=== PATIENT | female | born 1940 | race Caucasian/White ===

== ENCOUNTER 2022-08-29 14:22 | Inpatient (IN) | payer OTHER, MEDICAID ==
[~2022-08-29] VITALS: Ht 165.1 cm; Wt 63.5 kg
[2022-08-29] MEDS ORDERED: IV NORMAL SALINE 1000 ML BAG IV ONE (14:30)
[2022-08-29] MEDS ORDERED: AMLO5TAB4 PO (14:47)
[2022-08-29] MEDS ORDERED: CARV10CP7 PO (14:47)
[2022-08-29] MEDS ORDERED: CARB1TAB21 PO (14:47)
[2022-08-29] MEDS ORDERED: FAMO20TA8 PO (14:48)
[2022-08-29] MEDS ORDERED: FENO67CA5 PO (14:48)
[2022-08-29] MEDS ORDERED: CLOP75TA33 PO (14:48)
[2022-08-29] MEDS ORDERED: LEVO75CA5 PO (14:49)
[2022-08-29] MEDS ORDERED: GABA-534 PO (14:49)
[2022-08-29] MEDS ORDERED: LOSA50TA39 PO (14:49)
[2022-08-29] MEDS ORDERED: METF-440 PO (14:52)
[2022-08-29] MEDS ORDERED: NITR0.3T SL (14:52)
[2022-08-29] MEDS ORDERED: OMEG1CAP47 PO (14:52)
[2022-08-29] MEDS ORDERED: PARO20TA7 PO (14:54)
[2022-08-29 14:58] LABS: HEMATOCRIT 36.6 % (31.2-41.9); MEAN CORPUSCULAR HEMOGLOBIN 31.1 uug (24.7-32.8); MEAN CORPUSCULAR VOLUME 92.2 fL (75.5-95.3); PLATELET COUNT (AUTO) 167 K/uL (179-408)
[2022-08-29 15:16] LABS: ETHANOL < 3 MG/DL (0-0)
--- NOTE | 2022-08-29 15:20 | NUR ---
Urine specimen collected and sent to lab.
[2022-08-29 15:22] LABS: *BILIRUBIN,URIN NEGATIVE (NEGATIVE); *CLARITY,URINE SLIGHTLY CLOUDY (CLEAR); *COLOR,URINE DARK YELLOW (YELLOW); *KETONES,URINE NEGATIVE (NEGATIVE); *UROBILINOGEN,URINE 0.2 E.U./dl (NORMAL); LEUKOCYTE ESTERASE ,URINE TRACE (NEGATIVE); NITRITE, URINE NEGATIVE (NEGATIVE); UGLUCOSE NEGATIVE (NEGATIVE)
--- NOTE | 2022-08-29 15:23 | NUR ---
Perineal care rendered.
[2022-08-29 15:24] LABS: *BLOOD, URINE TRACE (NEGATIVE)
--- NOTE | 2022-08-29 15:24 | NUR ---
Patient had yellow watery diarrhea.
[2022-08-29 15:25] LABS: ALANINE AMINOTRANSFERASE 27 U/L (14-59); ALKALINE PHOSPHATASE 93 U/L (50-136); ASPARTATE AMINOTRANSFERASE 22 U/L (15-37); BILIRUBIN,DIRECT 0.2 mg/dL (0.0-0.2); BILIRUBIN,TOTAL 0.8 mg/dL (0.2-1.0); CARBON DIOXIDE 32 mmol/L (21-32); CREATININE 1.2 mg/dL (0.6-1.3); GLUCOSE 232 mg/dL (74-106); TOTAL PROTEIN, SERUM 7.1 g/dL (6.4-8.2); UREA NITROGEN, BLOOD 18 mg/dL (7-18)
--- NOTE | 2022-08-29 15:32 | NUR ---
Received call from lab: Potassium = 2.4, Lactic Acid = 2.2. MD and RN made aware.
[2022-08-29 15:38] LABS: POTASSIUM 2.4 mmol/L (3.5-5.1)
[2022-08-29 15:39] LABS: CHLORIDE 97 mmol/L (98-107)
--- NOTE | 2022-08-29 15:41 | NUR ---
Patient's daughter just came to our ER department. @bedside.
--- NOTE | 2022-08-29 16:37 | NUR ---
Klor con not administered, pending formal swallow eval.
[2022-08-29] MEDS ORDERED: POTASSIUM CHLORIDE 20 MEQ POWDER PACKET PO ONE (16:45)
[2022-08-29] MEDS ORDERED: POTASSIUM CHLORIDE 100 ML ONE (17:11)
[2022-08-29] MEDS: POTASSIUM CHLORIDE 50 ML IV SCH ×2 (17:16→18:21)
[2022-08-29] MEDS ORDERED: MAGNESIUM SULFATE/D5W 100 ML IV SCH (18:15)
[2022-08-29] MEDS ORDERED: MAGNESIUM SULFATE/D5W 100 ML ONE (18:33)
--- NOTE | 2022-08-29 19:07 | NUR ---
Received report from PITER Wilson.
[2022-08-29 20:01] LABS: BACTERIA,URINE MANY /HPF (NONE SEEN); SQUAMOUS EPITHELIAL CELL,UR MANY /HPF (NONE SEEN)
[2022-08-29] MEDS ORDERED: CEFTRIAXONE /D5W 50ML IVPB **ER PYXIS IV ONE (22:05)
[2022-08-29] MEDS ORDERED: CEFTRIAXONE 1 G in IV DEXTROSE 5% 50 ML IV ONE (22:15)
--- NOTE | 2022-08-30 00:27 | NUR ---
Gave report to Shyann DUMAS.
--- NOTE | 2022-08-30 01:45 | NUR ---
Transferred patient to 3rd floor via stretcher. PITER Boothe made aware of patients arrival.
--- NOTE | 2022-08-30 01:57 | NUR ---
Patient recieved from ED via stretcher into room 324. No acute distress noted. Awake, alert, and oriented x1. Patient is confused. Patient is on room air. Respirations even and non labored. Abdomen soft. No edema noted. Saline lock intact in right anticubital. Patient in bed. side rails up x 3. Bed alarm on. Will continue to Monitor.
[2022-08-30 02:18] VITALS: BP 151/71
[2022-08-30 04:40] VITALS: BP 160/68
[2022-08-30] MEDS ORDERED: MAGNESIUM HYDROXIDE 30 ML LIQUID UDC PO PRN (05:00)
[2022-08-30] MEDS ORDERED: DEXTROSE 50% 50 ML DISP.SYRIN IV PRN (05:00)
[2022-08-30] MEDS ORDERED: REMEDY ESSENTIAL ZINC PASTE 113 GM TP PRN (05:00)
[2022-08-30] MEDS ORDERED: ONDANSETRON 4 MG/2 ML VIAL IV PRN (05:00)
[2022-08-30] MEDS ORDERED: ZOLPIDEM 5 MG TABLET PO PRN (05:00)
[2022-08-30] MEDS ORDERED: ACETAMINOPHEN 325 MG TABLET PO PRN (05:00)
[2022-08-30] MEDS ORDERED: CEFTRIAXONE /D5W 50ML IVPB **ER PYXIS IV ONE (05:18)
[2022-08-30] MEDS: BLOOD SUGAR DIAGNOSTIC 1 EACH STRIP VI SCH ×4 (06:10→20:18)
[2022-08-30] MEDS: INSULIN REGULAR, HUMAN 300 UNIT/3 ML VIAL SQ PRN ×3 (08:01→20:25)
[2022-08-30] MEDS: ENOXAPARIN SODIUM 40 MG/0.4 ML DISP.SYRIN SQ SCH (08:15)
--- NOTE | 2022-08-30 08:30 | NUR ---
Received patient lying on bed .No acute distress noted. Awake, alert, and oriented x1. Patient is confused. Patient is on room air. Respirations even and non labored. Abdomen soft. No edema noted. Saline lock intact in left antecubital area. Blood sugar monitoring done with sliding scale. medication given. Needs attended
[2022-08-30 08:51] LABS: HEMATOCRIT 37.5 % (31.2-41.9); MEAN CORPUSCULAR HEMOGLOBIN 31.1 uug (24.7-32.8); MEAN CORPUSCULAR VOLUME 92.6 fL (75.5-95.3); PLATELET COUNT (AUTO) 172 K/uL (179-408)
[2022-08-30 09:12] LABS: CREATININE 0.7 mg/dL (0.6-1.3); MAGNESIUM 1.7 mg/dL (1.8-2.4); PHOSPHOROUS 2.9 mg/dL (2.5-4.9)
[2022-08-30 09:19] LABS: POTASSIUM 2.6 mmol/L (3.5-5.1)
[2022-08-30 09:20] LABS: THYROID STIMULATING HORMONE 2.456 mIU/mL (0.358-3.740)
[2022-08-30] MEDS: POTASSIUM CHLORIDE 50 ML IV SCH ×4 (09:46→14:27)
[2022-08-30 12:00] VITALS: BP 147/69
[2022-08-30 16:00] VITALS: BP 122/66
[2022-08-30 20:00] VITALS: BP 151/78
[2022-08-30] MEDS: GABAPENTIN 300 MG CAPSULE PO SCH (20:18)
[2022-08-30] MEDS: CARBIDOPA/LEVODOPA 25-100MG TABLET PO SCH (20:18)
[2022-08-30] MEDS: CARVEDILOL 3.125 MG TABLET PO SCH (20:55)
[2022-08-30] MEDS: CEFTRIAXONE 1 G in IV DEXTROSE 5% 50 ML IV SCH (21:04)
[2022-08-31] VITALS: BP 136/48
[2022-08-31 04:00] VITALS: BP 131/53
[2022-08-31] MEDS: BLOOD SUGAR DIAGNOSTIC 1 EACH STRIP VI SCH ×4 (06:06→20:51)
[2022-08-31] MEDS: LEVOTHYROXINE SODIUM 75 MCG TABLET PO SCH (06:06)
[2022-08-31] MEDS: INSULIN REGULAR, HUMAN 300 UNIT/3 ML VIAL SQ PRN ×3 (06:08→20:44)
[2022-08-31 07:46] LABS: CREATININE 0.9 mg/dL (0.6-1.3); MAGNESIUM 1.6 mg/dL (1.8-2.4); PHOSPHOROUS 3.6 mg/dL (2.5-4.9)
[2022-08-31 07:54] LABS: THYROID STIMULATING HORMONE 2.092 mIU/mL (0.358-3.740)
[2022-08-31 08:15] LABS: HEMATOCRIT 36.3 % (31.2-41.9); MEAN CORPUSCULAR HEMOGLOBIN 30.6 uug (24.7-32.8); MEAN CORPUSCULAR VOLUME 92.3 fL (75.5-95.3); PLATELET COUNT (AUTO) 179 K/uL (179-408)
[2022-08-31] MEDS: CARBIDOPA/LEVODOPA 25-100MG TABLET PO SCH ×3 (09:01→16:53)
[2022-08-31] MEDS: FAMOTIDINE 20 MG TABLET PO SCH (09:01)
[2022-08-31] MEDS: PAROXETINE HCL 20 MG TABLET PO SCH (09:02)
[2022-08-31] MEDS: CLOPIDOGREL 75 MG TABLET PO SCH (09:02)
[2022-08-31] MEDS: METFORMIN HCL 500 MG TABLET PO SCH ×2 (09:02→17:46)
[2022-08-31] MEDS: OMEGA-3 FATTY ACIDS/FISH OIL CAPSULE PO SCH (09:02)
[2022-08-31] MEDS: FENOFIBRATE NANOCRYSTALLIZED 48 MG TABLET PO SCH (09:03)
[2022-08-31] MEDS: ENOXAPARIN SODIUM 40 MG/0.4 ML DISP.SYRIN SQ SCH (09:04)
[2022-08-31] MEDS: CARVEDILOL 3.125 MG TABLET PO SCH ×2 (09:09→16:53)
[2022-08-31] MEDS: LOSARTAN POTASSIUM 50 MG TABLET PO SCH (09:09)
[2022-08-31] MEDS: AMLODIPINE 5 MG TABLET PO SCH (09:10)
[2022-08-31 11:05] LABS: POTASSIUM 2.5 mmol/L (3.5-5.1)
[2022-08-31 12:10] VITALS: BP 118/51
--- NOTE | 2022-08-31 13:28 | NUR ---
At 1105 received a call from lab ([facility]) reported critical lab value of Potassium 2.[address] Alaniz and no new order received.
[2022-08-31] MEDS ORDERED: POTASSIUM CHLORIDE 20 MEQ TAB.PRT.SR PO ONE (14:00)
[2022-08-31] MEDS ORDERED: MAGNESIUM OXIDE 400 MG TABLET PO ONE (14:00)
--- NOTE | 2022-08-31 14:29 | NUR ---
For Reported potassium level of 2.5 Dr. Alaniz placed order for Potassium 60meq and Magnesium 800mg.
[2022-08-31 15:48] VITALS: BP 128/56
[2022-08-31] MEDS: POTASSIUM CHLORIDE 10 MEQ, LIDOCAINE 1% 1 ML in IV DEXTROSE 5% 100 ML IV SCH ×6 (16:24→23:03)
--- NOTE | 2022-08-31 17:35 | NUR ---
Pt. noted to be stable through out the shift. Kyrgyz speaking. Compliance with the care given. All need attended and met. No acute distress noted. call light within reach. Will keep monitoring the patient.
[2022-08-31 20:00] VITALS: BP 146/68
[2022-08-31] MEDS: GABAPENTIN 300 MG CAPSULE PO SCH (20:17)
--- NOTE | 2022-08-31 22:00 | NUR ---
Received call from pt's daughter Kristen Casanova. Asking for update. Complaining that no doctor has spoken to her regarding her mom's condition despite her calling the unit. Told her I will relay her message to day shift nurse and have the doctor call her.
[2022-08-31] MEDS: CEFTRIAXONE 1 G in IV DEXTROSE 5% 50 ML IV SCH (23:03)
[2022-09-01] VITALS: BP 126/72
--- NOTE | 2022-09-01 00:54 | NUR ---
Pt's temp 101. Administered 2 tabs tylenol. Pt confused. Unable to swallow PO meds. Pt was only able to swallow only 1 tab of tylenol. Removed remaining tablet from her mouth. No aspiration noted. Kept HOB elevated. Addendum: 09/01/22 at 0517 by JAVIER WYATT RN typo: it was 100 F. Cooling measures done. Rechecked temp after an hour, temp was 98.2
[2022-09-01 04:00] VITALS: BP 159/79
[2022-09-01] MEDS: LEVOTHYROXINE SODIUM 75 MCG TABLET PO SCH (06:17)
[2022-09-01] MEDS: BLOOD SUGAR DIAGNOSTIC 1 EACH STRIP VI SCH ×4 (06:40→20:10)
[2022-09-01 07:54] LABS: HEMATOCRIT 35.8 % (31.2-41.9); MEAN CORPUSCULAR HEMOGLOBIN 30.7 uug (24.7-32.8); MEAN CORPUSCULAR VOLUME 92.5 fL (75.5-95.3); PLATELET COUNT (AUTO) 171 K/uL (179-408)
[2022-09-01 08:06] LABS: CREATININE 0.8 mg/dL (0.6-1.3); MAGNESIUM 1.6 mg/dL (1.8-2.4); PHOSPHOROUS 2.5 mg/dL (2.5-4.9); POTASSIUM 4.1 mmol/L (3.5-5.1)
[2022-09-01] MEDS: CLOPIDOGREL 75 MG TABLET PO SCH (08:28)
[2022-09-01] MEDS: OMEGA-3 FATTY ACIDS/FISH OIL CAPSULE PO SCH (08:28)
[2022-09-01] MEDS: FAMOTIDINE 20 MG TABLET PO SCH (08:28)
[2022-09-01] MEDS: CARBIDOPA/LEVODOPA 25-100MG TABLET PO SCH ×3 (08:28→17:42)
[2022-09-01] MEDS: METFORMIN HCL 500 MG TABLET PO SCH ×2 (08:28→19:14)
[2022-09-01] MEDS: FENOFIBRATE NANOCRYSTALLIZED 48 MG TABLET PO SCH (08:28)
[2022-09-01] MEDS: PAROXETINE HCL 20 MG TABLET PO SCH (08:29)
[2022-09-01] MEDS: ENOXAPARIN SODIUM 40 MG/0.4 ML DISP.SYRIN SQ SCH (08:30)
[2022-09-01] MEDS: CARVEDILOL 3.125 MG TABLET PO SCH ×2 (08:32→17:41)
[2022-09-01] MEDS: AMLODIPINE 5 MG TABLET PO SCH (08:33)
[2022-09-01] MEDS: LOSARTAN POTASSIUM 50 MG TABLET PO SCH (08:33)
[2022-09-01] MEDS: MAGNESIUM SULFATE/D5W 100 ML IV SCH ×2 (11:12→12:41)
[2022-09-01] MEDS: INSULIN REGULAR, HUMAN 300 UNIT/3 ML VIAL SQ PRN ×2 (11:51→17:46)
[2022-09-01] MEDS ORDERED: AZIT250T13 PO (13:31)
--- NOTE | 2022-09-01 14:29 | NUR ---
Pt's dtr, Kristen [phone], called earlier, I called her back now and left a message for her to call me so that I can update her on her mother's care.
[2022-09-01 17:41] VITALS: BP 143/67
--- NOTE | 2022-09-01 19:45 | NUR ---
Dr Milind Alaniz ordered Imodium prior to discharge; also Dr Milind Alaniz confirmed that pt's new med, azithromycin has been transmitted to their preferred pharmacy.
[2022-09-01] MEDS: GABAPENTIN 300 MG CAPSULE PO SCH (20:00)
[2022-09-01] MEDS ORDERED: LOPERAMIDE HCL 2 MG CAPSULE PO ONE (20:15)
[2022-09-01] MEDS: CEFTRIAXONE 1 G in IV DEXTROSE 5% 50 ML IV SCH (20:18)
--- NOTE | 2022-09-01 22:08 | NUR ---
TOOK REPORT FROM [facility]DE[facility] NURSE AT 1900, MID LINE REMOVED FROM RT ARM ALL INTACT, SPOKE WITH PATIENT DAUGHTER, [facility] TRANSPORTED PATIENT VIA STRETCHER AT 2114, PATIENT STABLE AND NO ACUTE DISTRESS NOTED.
== END 2022-09-01 20:30 | disposition home or self-care (01) | DRG 177 ==
LOC: ER 14:22 → TELE3 23:30 → MEDSURG3 09-01 11:05
PROVIDERS: ADMIT Nurse Practitioner Acute Care; ATTEND Nurse Practitioner Acute Care
PROC: 05H533Z Insertion of Infusion Device into Right Subclavian Vein, Percutaneous Approach (ICD-10-PCS; principal; 2022-08-30)
PROC: B546ZZA Ultrasonography of Right Subclavian Vein, Guidance (ICD-10-PCS; 2022-08-30)
DX: U07.1 COVID-19 (principal); G93.41 Metabolic encephalopathy; J12.82 Pneumonia due to coronavirus disease 2019; N39.0 Urinary tract infection, site not specified; E87.20 Acidosis, unspecified; E87.6 Hypokalemia; J01.90 Acute sinusitis, unspecified; E11.9 Type 2 diabetes mellitus without complications; E83.42 Hypomagnesemia; G20 Parkinson's disease; G89.4 Chronic pain syndrome; Z86.73 Personal history of transient ischemic attack (TIA), and cerebral infarction without residual deficits; Z88.2 Allergy status to sulfonamides; R53.1 Weakness; E78.5 Hyperlipidemia, unspecified; B96.89 Other specified bacterial agents as the cause of diseases classified elsewhere; Z79.84 Long term (current) use of oral hypoglycemic drugs; F02.80 Dementia in other diseases classified elsewhere, unspecified severity, without behavioral disturbance, psychotic disturbance, mood disturbance, and anxiety
CPT/HCPCS: 36415; 70450; 71045; 72192; 83605; 83735; 84100; 84443; 84484; 85025; 93005; A6213; C1758; G0378; G0480; J0696; J1650; J1815; J2001; J3475; J3480; J7040

== ENCOUNTER 2024-03-10 14:15 | Inpatient (IN) | payer OTHER ==
[~2024-03-10] VITALS: Ht 152.4 cm; Wt 49.9 kg
[~2024-03-10 14:15] MED LIST: AMLO5TAB4 PO; AZIT250T13 PO; CARB1TAB21 PO; CARV10CP7 PO; CLOP75TA33 PO; FAMO20TA8 PO; FENO67CA5 PO; GABA-534 PO; LEVO75CA5 PO; LOSA50TA39 PO; METF-440 PO; NITR0.3T SL; OMEG1CAP47 PO; PARO20TA7 PO
[2024-03-10] MEDS ORDERED: CHOL500050 PO (15:07)
[2024-03-10] MEDS ORDERED: MEMA10TA PO (15:07)
[2024-03-10] MEDS ORDERED: CYAN-51 PO (15:07)
[2024-03-10] MEDS ORDERED: HYDR-3980 PO (15:07)
[2024-03-10] MEDS ORDERED: TRAZ-182 PO (15:07)
[2024-03-10 15:22] LABS: BASOPHILS % (AUTO) 0.1 % (0.0-2.0); EOSINOPHILS % (AUTO) 0.2 % (0.0-7.0); HEMATOCRIT 37.6 % (31.2-41.9); HEMOGLOBIN 12.2 g/dL (10.9-14.3); LYMPHOCYTES # (AUTO) 0.2 K/uL (0.8-4.8); LYMPHOCYTES % (AUTO) 5.6 % (20.5-51.5); MEAN CORPUSCULAR HEMOGLOBIN 30.1 uug (24.7-32.8); MEAN CORPUSCULAR HGB CONC 32 g/dL (32.3-35.6); MEAN CORPUSCULAR VOLUME 92.9 fL (75.5-95.3); MONOCYTES % (AUTO) 0.5 % (0.0-11.0); NEUTROPHILS # (AUTO) 4.1 K/uL (1.8-8.9); NEUTROPHILS % (AUTO) 93.6 % (38.5-71.5); PLATELET COUNT (AUTO) 148 K/uL (179-408); RED BLOOD CELL COUNT(AUTO) 4.05 MIL/uL (3.63-4.92); RED CELL DISTRIBUTION WIDTH 15.4 % (12.3-17.7); WHITE BLOOD COUNT (AUTO) 4.3 K/uL (3.8-11.8)
[2024-03-10 15:30] LABS: CALCIUM 8.9 mg/dL (8.5-10.1); CREATININE 0.9 mg/dL (0.6-1.3); MAGNESIUM 1.7 mg/dL (1.8-2.4); POTASSIUM 3.5 mmol/L (3.5-5.1)
[2024-03-10 15:37] LABS: LIPASE 24 U/L (16-77)
[2024-03-10] MEDS ORDERED: MAGNESIUM SULFATE/D5W 200 ML ONE (15:50)
[2024-03-10 15:53] LABS: DIFFERENTIAL COMMENT 1
[2024-03-10] MEDS: MAGNESIUM SULFATE/D5W 100 ML IV SCH (15:53)
[2024-03-10 15:56] LABS: LACTIC ACID 3.4 mmol/L (0.4-2.0)
[2024-03-10] MEDS: IV NS 1000 ML 1,000 ML IV ONE ×2 (16:21)
[2024-03-10] MEDS ORDERED: CEFTRIAXONE /D5W 50ML IVPB **ER PYXIS IV ONE (16:30)
[2024-03-10] MEDS: CEFTRIAXONE 1 G in IV DEXTROSE 5% 50 ML IV ONE (16:33)
[2024-03-10 17:49] LABS: BILIRUBIN,DIRECT 0.5 mg/dL (0.0-0.2)
[2024-03-10] MEDS ORDERED: GENTAMICIN SULFATE 20 MG/2 ML VIAL IV ONE (18:23)
[2024-03-10 18:26] LABS: *BILIRUBIN,URIN 1+ (NEGATIVE); *BLOOD, URINE 3+ (NEGATIVE); *CLARITY,URINE SLIGHTLY CLOUDY (CLEAR); *COLOR,URINE Other (YELLOW); *KETONES,URINE TRACE (NEGATIVE); *PROTEIN,URINE 2+ (NEGATIVE); *UROBILINOGEN,URINE 0.2 E.U./dl (NORMAL); LEUKOCYTE ESTERASE ,URINE 1+ (NEGATIVE); NITRITE, URINE NEGATIVE (NEGATIVE); PH,URINE 5.5 (5.0-8.0); UGLUCOSE NEGATIVE (NEGATIVE)
[2024-03-10 18:27] LABS: YEAST,URINE MODERATE /HPF (NONE SEEN)
[2024-03-10] MEDS: GENTAMICIN SULFATE 20 MG/2 ML VIAL IV ONE (18:35)
[2024-03-10] MEDS ORDERED: MAGNESIUM HYDROXIDE 30 ML LIQUID UDC PO PRN (21:00)
[2024-03-10 21:30] VITALS: BP 124/70; TEMP 99; O2SAT 97
[2024-03-10] MEDS: IV LACTATED RINGERS SOLUTION 1,000 ML IV SCH (22:05)
[2024-03-10] MEDS: GABAPENTIN 300 MG CAPSULE PO SCH (22:06)
[2024-03-11] VITALS (7 sets, daily range): BP systolic 73–134; BP diastolic 31–48; TEMP 98.1–98.4; O2SAT 96–98
[2024-03-11] MEDS ORDERED: METF-494 PO (06:01)
[2024-03-11] MEDS ORDERED: LEVOTHYROXINE SODIUM 75 MCG TABLET PO SCH ×2 (07:00→09:00)
[2024-03-11 07:18] LABS: BASOPHILS % (AUTO) 0.1 % (0.0-2.0); HEMATOCRIT 31.3 % (31.2-41.9); HEMOGLOBIN 10.2 g/dL (10.9-14.3); LYMPHOCYTES # (AUTO) 0.7 K/uL (0.8-4.8); LYMPHOCYTES % (AUTO) 3.7 % (20.5-51.5); MEAN CORPUSCULAR HEMOGLOBIN 30.3 uug (24.7-32.8); MEAN CORPUSCULAR HGB CONC 33 g/dL (32.3-35.6); MEAN CORPUSCULAR VOLUME 92.9 fL (75.5-95.3); MONOCYTES # (AUTO) 1.1 K/uL (0.1-1.30); NEUTROPHILS # (AUTO) 16.6 K/uL (1.8-8.9); NEUTROPHILS % (AUTO) 90.2 % (38.5-71.5); PLATELET COUNT (AUTO) 89 K/uL (179-408); RED BLOOD CELL COUNT(AUTO) 3.36 MIL/uL (3.63-4.92); RED CELL DISTRIBUTION WIDTH 15.8 % (12.3-17.7); WHITE BLOOD COUNT (AUTO) 18.5 K/uL (3.8-11.8)
[2024-03-11 07:24] LABS: CALCIUM 7.6 mg/dL (8.5-10.1); CARBON DIOXIDE 18 mmol/L (21-32); CHLORIDE 108 mmol/L (98-107); CREATININE 1.7 mg/dL (0.6-1.3); GLUCOSE 146 mg/dL (74-106); MAGNESIUM 1.8 mg/dL (1.8-2.4); PHOSPHOROUS 2.8 mg/dL (2.5-4.9); POTASSIUM 2.9 mmol/L (3.5-5.1); SODIUM SERUM 142 mmol/L (136-145); UREA NITROGEN, BLOOD 31 mg/dL (7-18)
[2024-03-11 07:34] LABS: DIFFERENTIAL COMMENT 1
[2024-03-11] MEDS: AMLODIPINE 5 MG TABLET PO SCH (08:17)
[2024-03-11] MEDS: MEMANTINE HCL 10 MG TABLET PO SCH (08:21)
[2024-03-11] MEDS: IV NORMAL SALINE 500 ML IV ONE (08:44)
[2024-03-11] MEDS ORDERED: CARBIDOPA/LEVODOPA 25-100MG TABLET PO SCH (09:00)
[2024-03-11] MEDS ORDERED: CARVEDILOL 3.125 MG TABLET PO SCH (09:00)
[2024-03-11] MEDS ORDERED: TRAZODONE 50 MG TABLET PO SCH (09:00)
[2024-03-11] MEDS ORDERED: PAROXETINE HCL 20 MG TABLET PO SCH ×2 (09:00)
[2024-03-11] MEDS ORDERED: LOSARTAN POTASSIUM 50 MG TABLET PO SCH (09:00)
[2024-03-11] MEDS ORDERED: HYDR12.55 PO (11:12)
[2024-03-11] MEDS ORDERED: POTASSIUM CHLORIDE 10 MEQ TAB.PRT.SR PO ONE (11:30)
[2024-03-11] MEDS: IV LACTATED RINGERS SOLUTION 1,000 ML IV PRN (12:13)
[2024-03-11] MEDS: CARBIDOPA/LEVODOPA 25-100MG TABLET PO SCH (12:16)
[2024-03-11] MEDS: POTASSIUM CHLORIDE 50 ML IV SCH (12:46)
[2024-03-11] MEDS: CEFTRIAXONE 2 G in IV DEXTROSE 5% 100 ML IV SCH (13:20)
[2024-03-11 13:58] LABS: BASOPHILS % (AUTO) 0.1 % (0.0-2.0); EOSINOPHILS % (AUTO) 0.1 % (0.0-7.0); HEMATOCRIT 31.6 % (31.2-41.9); HEMOGLOBIN 10.2 g/dL (10.9-14.3); LYMPHOCYTES # (AUTO) 1.3 K/uL (0.8-4.8); LYMPHOCYTES % (AUTO) 6.2 % (20.5-51.5); MEAN CORPUSCULAR HGB CONC 32 g/dL (32.3-35.6); MONOCYTES # (AUTO) 1.1 K/uL (0.1-1.30); MONOCYTES % (AUTO) 5.3 % (0.0-11.0); NEUTROPHILS % (AUTO) 88.3 % (38.5-71.5); PLATELET COUNT (AUTO) 89 K/uL (179-408); RED CELL DISTRIBUTION WIDTH 15.8 % (12.3-17.7); WHITE BLOOD COUNT (AUTO) 20.4 K/uL (3.8-11.8)
[2024-03-11 14:16] LABS: DIFFERENTIAL COMMENT 1
[2024-03-11] MEDS ORDERED: CEFTRIAXONE 1 G in IV DEXTROSE 5% 50 ML IV SCH ×2 (16:00→21:00)
[2024-03-11] MEDS: CARVEDILOL 3.125 MG TABLET PO SCH (16:06)
[2024-03-11] MEDS: LOSARTAN POTASSIUM 50 MG TABLET PO SCH (16:08)
[2024-03-11] MEDS: MEMANTINE HCL 5 MG TABLET PO SCH (16:15)
[2024-03-11] MEDS: CLOTRIMAZOLE 1% CREAM 30 GM TUBE TOP SCH (16:16)
[2024-03-11 17:26] LABS: BASOPHILS % (MANUAL) 0 % (0-2); EOSINOPHILS % (MANUAL) 0 % (0-8); LYMPHOCYTES % (MANUAL) 5 % (20-40); MONOCYTES % (MANUAL) 5 % (2-10); NEUTROPHILS % (MANUAL) 90 % (42-75)
[2024-03-11 17:27] LABS: NEUTROPHILS % (MANUAL) 88 % (42-75)
[2024-03-11 17:28] LABS: BASOPHILS % (MANUAL) 0 % (0-2); EOSINOPHILS % (MANUAL) 0 % (0-8); LYMPHOCYTES % (MANUAL) 6 % (20-40); MONOCYTES % (MANUAL) 6 % (2-10)
[2024-03-11] MEDS: TRAZODONE 50 MG TABLET PO SCH (20:37)
[2024-03-11] MEDS ORDERED: GABAPENTIN 300 MG CAPSULE PO SCH (21:00)
[2024-03-11] MEDS: ACETAMINOPHEN 325 MG TABLET PO PRN (23:51)
[2024-03-12 04:30] VITALS: BP 120/52; TEMP 97.3; O2SAT 94
[2024-03-12 06:42] LABS: CALCIUM 7.7 mg/dL (8.5-10.1); CARBON DIOXIDE 21 mmol/L (21-32); CHLORIDE 107 mmol/L (98-107); CREATININE 1.9 mg/dL (0.6-1.3); GLUCOSE 94 mg/dL (74-106); POTASSIUM 3.7 mmol/L (3.5-5.1); SODIUM SERUM 138 mmol/L (136-145); UREA NITROGEN, BLOOD 43 mg/dL (7-18)
[2024-03-12 06:47] LABS: BASOPHILS % (AUTO) 0.3 % (0.0-2.0); EOSINOPHILS # (AUTO) 0.1 K/uL (0.0-0.7); EOSINOPHILS % (AUTO) 0.4 % (0.0-7.0); HEMATOCRIT 28.1 % (31.2-41.9); HEMOGLOBIN 9.2 g/dL (10.9-14.3); LYMPHOCYTES # (AUTO) 1.3 K/uL (0.8-4.8); MEAN CORPUSCULAR HEMOGLOBIN 30.3 uug (24.7-32.8); MEAN CORPUSCULAR HGB CONC 33 g/dL (32.3-35.6); MEAN CORPUSCULAR VOLUME 92.4 fL (75.5-95.3); MONOCYTES # (AUTO) 0.6 K/uL (0.1-1.30); MONOCYTES % (AUTO) 4.5 % (0.0-11.0); NEUTROPHILS # (AUTO) 12.3 K/uL (1.8-8.9); NEUTROPHILS % (AUTO) 85.8 % (38.5-71.5); PLATELET COUNT (AUTO) 77 K/uL (179-408); RED BLOOD CELL COUNT(AUTO) 3.04 MIL/uL (3.63-4.92); RED CELL DISTRIBUTION WIDTH 15.8 % (12.3-17.7); WHITE BLOOD COUNT (AUTO) 14.3 K/uL (3.8-11.8)
[2024-03-12 06:49] VITALS: BP 113/35; TEMP 98.5; O2SAT 96
[2024-03-12 07:00] LABS: DIFFERENTIAL COMMENT 1
[2024-03-12] MEDS ORDERED: LEVOTHYROXINE SODIUM 75 MCG TABLET PO SCH (07:00)
[2024-03-12 11:40] VITALS: BP 107/49; TEMP 97.9; O2SAT 98
[2024-03-12 15:10] LABS: ANISOCYTOSIS 1+
[2024-03-12 15:11] LABS: METAMYELOCYTES % 2 % (0-1)
[2024-03-12 15:14] LABS: NEUTROPHILS % (MANUAL) 72 % (42-75)
[2024-03-12 15:15] LABS: BAND % (MANUAL) 11 % (0-10); LYMPHOCYTES % (MANUAL) 12 % (20-40); MONOCYTES % (MANUAL) 1 % (2-10)
[2024-03-12 15:16] LABS: MYELOCYTES % 2 % (0-0)
[2024-03-12 15:17] LABS: PLATELET ESTIMATE DECREASED
[2024-03-12 15:29] VITALS: BP 121/51; TEMP 97.6; O2SAT 99
[2024-03-12 16:00] VITALS: O2SAT 98
[2024-03-12 20:25] VITALS: BP 109/62; TEMP 95.5; O2SAT 97
[2024-03-13 05:51] VITALS: O2SAT 98
[2024-03-13 06:20] VITALS: BP 143/70; TEMP 97.5; O2SAT 97
[2024-03-13 07:00] LABS: CALCIUM 8.2 mg/dL (8.5-10.1); CARBON DIOXIDE 21 mmol/L (21-32); CHLORIDE 109 mmol/L (98-107); CREATININE 1.3 mg/dL (0.6-1.3); GLUCOSE 103 mg/dL (74-106); POTASSIUM 4.1 mmol/L (3.5-5.1); SODIUM SERUM 139 mmol/L (136-145); UREA NITROGEN, BLOOD 34 mg/dL (7-18)
[2024-03-13 07:08] LABS: BASOPHILS % (AUTO) 0.2 % (0.0-2.0); EOSINOPHILS # (AUTO) 0.1 K/uL (0.0-0.7); EOSINOPHILS % (AUTO) 0.7 % (0.0-7.0); HEMATOCRIT 30.9 % (31.2-41.9); LYMPHOCYTES # (AUTO) 1.2 K/uL (0.8-4.8); LYMPHOCYTES % (AUTO) 8.3 % (20.5-51.5); MEAN CORPUSCULAR HEMOGLOBIN 29.8 uug (24.7-32.8); MEAN CORPUSCULAR HGB CONC 32 g/dL (32.3-35.6); MEAN CORPUSCULAR VOLUME 91.9 fL (75.5-95.3); MONOCYTES # (AUTO) 0.5 K/uL (0.1-1.30); MONOCYTES % (AUTO) 3.3 % (0.0-11.0); NEUTROPHILS # (AUTO) 12.6 K/uL (1.8-8.9); NEUTROPHILS % (AUTO) 87.5 % (38.5-71.5); PLATELET COUNT (AUTO) 88 K/uL (179-408); RED BLOOD CELL COUNT(AUTO) 3.36 MIL/uL (3.63-4.92); RED CELL DISTRIBUTION WIDTH 16.5 % (12.3-17.7); WHITE BLOOD COUNT (AUTO) 14.4 K/uL (3.8-11.8)
[2024-03-13 07:12] LABS: DIFFERENTIAL COMMENT 1
[2024-03-13] MEDS: LOSARTAN POTASSIUM 50 MG TABLET PO SCH (08:40)
[2024-03-13 11:22] VITALS: BP 144/84; TEMP 98.1; O2SAT 98
[2024-03-13 14:59] LABS: BAND % (MANUAL) 3 % (0-10); LYMPHOCYTES % (MANUAL) 6 % (20-40); MONOCYTES % (MANUAL) 2 % (2-10); NEUTROPHILS % (MANUAL) 89 % (42-75); PLATELET ESTIMATE DECREASED
[2024-03-13 15:01] LABS: ANISOCYTOSIS 1+; HYPOCHROMASIA 1+
[2024-03-13 15:24] VITALS: BP 139/69; TEMP 97.7; O2SAT 99
[2024-03-13 16:23] VITALS: O2SAT 98
[2024-03-13] MEDS: DOCUSATE SODIUM 100 MG CAPSULE PO SCH (20:35)
[2024-03-13 20:43] VITALS: BP 155/80; TEMP 96; O2SAT 98
[2024-03-13] MEDS: ONDANSETRON 4 MG/2 ML VIAL IV PRN (21:22)
[2024-03-14 02:49] VITALS: O2SAT 98
[2024-03-14 06:00] VITALS: BP 162/81; TEMP 98; O2SAT 98
[2024-03-14 07:48] LABS: BASOPHILS % (AUTO) 0.4 % (0.0-2.0); EOSINOPHILS # (AUTO) 0.1 K/uL (0.0-0.7); EOSINOPHILS % (AUTO) 1.3 % (0.0-7.0); HEMATOCRIT 29.6 % (31.2-41.9); HEMOGLOBIN 10.1 g/dL (10.9-14.3); LYMPHOCYTES # (AUTO) 1.2 K/uL (0.8-4.8); LYMPHOCYTES % (AUTO) 13.5 % (20.5-51.5); MEAN CORPUSCULAR HEMOGLOBIN 31.5 uug (24.7-32.8); MEAN CORPUSCULAR HGB CONC 34 g/dL (32.3-35.6); MEAN CORPUSCULAR VOLUME 92.1 fL (75.5-95.3); MONOCYTES # (AUTO) 0.6 K/uL (0.1-1.30); MONOCYTES % (AUTO) 7.1 % (0.0-11.0); NEUTROPHILS # (AUTO) 6.9 K/uL (1.8-8.9); NEUTROPHILS % (AUTO) 77.7 % (38.5-71.5); PLATELET COUNT (AUTO) 95 K/uL (179-408); RED BLOOD CELL COUNT(AUTO) 3.22 MIL/uL (3.63-4.92); RED CELL DISTRIBUTION WIDTH 16.4 % (12.3-17.7); WHITE BLOOD COUNT (AUTO) 8.9 K/uL (3.8-11.8)
[2024-03-14 07:58] LABS: DIFFERENTIAL COMMENT 1
[2024-03-14 08:13] LABS: CALCIUM 8.1 mg/dL (8.5-10.1); CARBON DIOXIDE 24 mmol/L (21-32); CHLORIDE 108 mmol/L (98-107); CREATININE 0.9 mg/dL (0.6-1.3); GLUCOSE 143 mg/dL (74-106); SODIUM SERUM 140 mmol/L (136-145); UREA NITROGEN, BLOOD 21 mg/dL (7-18)
[2024-03-14 10:51] LABS: ANISOCYTOSIS 1+; BAND % (MANUAL) 1 % (0-10); EOSINOPHILS % (MANUAL) 1 % (0-8); LYMPHOCYTES % (MANUAL) 16 % (20-40); MONOCYTES % (MANUAL) 4 % (2-10); NEUTROPHILS % (MANUAL) 78 % (42-75); PLATELET ESTIMATE DECREASED
[2024-03-14 12:00] VITALS: BP 161/58; TEMP 97.8; O2SAT 96
[2024-03-14 15:53] VITALS: BP 120/81; TEMP 97.8; O2SAT 97
[2024-03-14 22:00] VITALS: BP 163/77; TEMP 98.3; O2SAT 98
[2024-03-14] MEDS: HYDROCODONE/APAP 5-325MG TABLET PO PRN (23:23)
[2024-03-15] VITALS (7 sets, daily range): BP systolic 127–163; BP diastolic 65–83; TEMP 97.5–98.4; O2SAT 94–98
[2024-03-15] MEDS ORDERED: NITROGLYCERIN 0.4 MG/TAB BOTTLE SL PRN
[2024-03-15 07:25] LABS: BASOPHILS # (AUTO) 0.1 K/UL (0.0-0.2); BASOPHILS % (AUTO) 0.6 % (0.0-2.0); EOSINOPHILS # (AUTO) 0.1 K/uL (0.0-0.7); EOSINOPHILS % (AUTO) 1.3 % (0.0-7.0); HEMOGLOBIN 10.1 g/dL (10.9-14.3); LYMPHOCYTES # (AUTO) 1.6 K/uL (0.8-4.8); LYMPHOCYTES % (AUTO) 19.5 % (20.5-51.5); MEAN CORPUSCULAR HEMOGLOBIN 30.5 uug (24.7-32.8); MEAN CORPUSCULAR HGB CONC 33 g/dL (32.3-35.6); MEAN CORPUSCULAR VOLUME 93.1 fL (75.5-95.3); MONOCYTES # (AUTO) 0.9 K/uL (0.1-1.30); NEUTROPHILS # (AUTO) 5.4 K/uL (1.8-8.9); NEUTROPHILS % (AUTO) 67.6 % (38.5-71.5); PLATELET COUNT (AUTO) 99 K/uL (179-408); RED BLOOD CELL COUNT(AUTO) 3.32 MIL/uL (3.63-4.92); RED CELL DISTRIBUTION WIDTH 16.1 % (12.3-17.7)
[2024-03-15 07:32] LABS: CALCIUM 7.7 mg/dL (8.5-10.1); CARBON DIOXIDE 26 mmol/L (21-32); CHLORIDE 106 mmol/L (98-107); CREATININE 0.8 mg/dL (0.6-1.3); GLUCOSE 158 mg/dL (74-106); POTASSIUM 3.7 mmol/L (3.5-5.1); SODIUM SERUM 128 mmol/L (136-145); UREA NITROGEN, BLOOD 15 mg/dL (7-18)
[2024-03-15 07:34] LABS: DIFFERENTIAL COMMENT 1
[2024-03-15] MEDS: ENSURE ENLIVE (VAN) 240 ML LIQUID PO SCH (08:26)
[2024-03-15] MEDS: REMEDY ESSENTIAL ZINC PASTE 113 GM TP PRN (08:33)
[2024-03-15 11:32] LABS: EOSINOPHILS % (MANUAL) 1 % (0-8); LYMPHOCYTES % (MANUAL) 18 % (20-40); METAMYELOCYTES % 1 % (0-1); MONOCYTES % (MANUAL) 13 % (2-10); NEUTROPHILS % (MANUAL) 67 % (42-75)
[2024-03-15 11:33] LABS: ANISOCYTOSIS 1+; PLATELET ESTIMATE DECREASED; TEAR DROP CELLS 1+
[2024-03-15] MEDS: MAGNESIUM HYDROXIDE 30 ML LIQUID UDC PO PRN (13:23)
[2024-03-15 16:47] LABS: CARBON DIOXIDE 26 mmol/L (21-32); CHLORIDE 105 mmol/L (98-107); CREATININE 0.7 mg/dL (0.6-1.3); GLUCOSE 260 mg/dL (74-106); POTASSIUM 4.2 mmol/L (3.5-5.1); SODIUM SERUM 138 mmol/L (136-145); UREA NITROGEN, BLOOD 13 mg/dL (7-18)
[2024-03-16 00:11] VITALS: BP 163/74; TEMP 98.7; O2SAT 93
[2024-03-16] MEDS: ZOLPIDEM 5 MG TABLET PO PRN (02:17)
[2024-03-16 04:00] VITALS: BP 154/68; TEMP 97.7; O2SAT 96
[2024-03-16 07:28] LABS: BASOPHILS % (AUTO) 0.5 % (0.0-2.0); EOSINOPHILS # (AUTO) 0.1 K/uL (0.0-0.7); EOSINOPHILS % (AUTO) 0.7 % (0.0-7.0); HEMATOCRIT 32.6 % (31.2-41.9); HEMOGLOBIN 10.8 g/dL (10.9-14.3); LYMPHOCYTES # (AUTO) 1.9 K/uL (0.8-4.8); LYMPHOCYTES % (AUTO) 19.2 % (20.5-51.5); MEAN CORPUSCULAR HEMOGLOBIN 30.5 uug (24.7-32.8); MEAN CORPUSCULAR HGB CONC 33 g/dL (32.3-35.6); MONOCYTES # (AUTO) 0.9 K/uL (0.1-1.30); MONOCYTES % (AUTO) 9.1 % (0.0-11.0); NEUTROPHILS % (AUTO) 70.5 % (38.5-71.5); PLATELET COUNT (AUTO) 124 K/uL (179-408); RED BLOOD CELL COUNT(AUTO) 3.55 MIL/uL (3.63-4.92); RED CELL DISTRIBUTION WIDTH 15.8 % (12.3-17.7); WHITE BLOOD COUNT (AUTO) 9.9 K/uL (3.8-11.8)
[2024-03-16 07:29] LABS: DIFFERENTIAL COMMENT 1
[2024-03-16 07:44] LABS: CALCIUM 7.8 mg/dL (8.5-10.1); CARBON DIOXIDE 27 mmol/L (21-32); CHLORIDE 103 mmol/L (98-107); CREATININE 0.7 mg/dL (0.6-1.3); GLUCOSE 267 mg/dL (74-106); POTASSIUM 3.9 mmol/L (3.5-5.1); SODIUM SERUM 137 mmol/L (136-145); UREA NITROGEN, BLOOD 14 mg/dL (7-18)
[2024-03-16] MEDS: MIRALAX 17 GM POWD.PACK PO SCH (08:15)
[2024-03-16 08:16] VITALS: BP 151/80; TEMP 97.3; O2SAT 94
[2024-03-16 12:00] VITALS: BP 140/72; TEMP 97.8; O2SAT 98
[2024-03-16] MEDS ORDERED: DOCU-141 PO (13:26)
[2024-03-16] MEDS ORDERED: LOSA50TA3 PO (13:26)
[2024-03-16] MEDS ORDERED: CEFT1FRO2 IV (13:26)
[2024-03-16] MEDS ORDERED: MEMA5TAB42 PO (13:26)
[2024-03-16] MEDS ORDERED: Lactose-Free Food PO (13:26)
[2024-03-16] MEDS ORDERED: CLOT30CR24 TOP (13:26)
[2024-03-16] MEDS ORDERED: POLY17PO4 PO (13:26)
[2024-03-16] MEDS ORDERED: CARV3.122 PO (13:26)
[2024-03-16] MEDS ORDERED: TRAZ-252 PO (13:26)
[2024-03-16] MEDS ORDERED: CARB1TAB21 PO (13:26)
[2024-03-16] MEDS: FUROSEMIDE 20 MG/2 ML VIAL IV ONE (14:04)
[2024-03-16 16:00] VITALS: BP 145/75; TEMP 97.3; O2SAT 97
[2024-03-16 16:11] VITALS: BP 140/72
== END 2024-03-16 19:19 | DRG 871 ==
LOC: ER 14:15 → TELE3 20:48 → MEDSURG3 03-12 10:25 → TELE3 03-15 00:23
PROVIDERS: ADMIT Nurse Practitioner Acute Care; ATTEND Nurse Practitioner Acute Care
PROC: 0T9B70Z Drainage of Bladder with Drainage Device, Via Natural or Artificial Opening (ICD-10-PCS; principal; 2024-03-11)
DX: A41.51 Sepsis due to Escherichia coli [E. coli] (principal); G93.41 Metabolic encephalopathy; N17.0 Acute kidney failure with tubular necrosis; I21.A1 Myocardial infarction type 2; N13.6 Pyonephrosis; K90.829 Short bowel syndrome, unspecified; E87.20 Acidosis, unspecified; R65.20 Severe sepsis without septic shock; N30.91 Cystitis, unspecified with hematuria; K21.9 Gastro-esophageal reflux disease without esophagitis; G89.4 Chronic pain syndrome; G20.A1 Parkinson's disease without dyskinesia, without mention of fluctuations; F02.80 Dementia in other diseases classified elsewhere, unspecified severity, without behavioral disturbance, psychotic disturbance, mood disturbance, and anxiety; E87.6 Hypokalemia; E86.9 Volume depletion, unspecified; R14.0 Abdominal distension (gaseous); E78.5 Hyperlipidemia, unspecified; E11.40 Type 2 diabetes mellitus with diabetic neuropathy, unspecified; D69.6 Thrombocytopenia, unspecified; Z79.84 Long term (current) use of oral hypoglycemic drugs; E03.9 Hypothyroidism, unspecified; Z86.73 Personal history of transient ischemic attack (TIA), and cerebral infarction without residual deficits; Z79.899 Other long term (current) drug therapy; Z79.02 Long term (current) use of antithrombotics/antiplatelets
CPT/HCPCS: 36415; 70030-TC; 71045; 74018; 76770; 83605; 83690; 83735; 84100; 84484; 85025; 86850; 86900; 86901; 87040; 87077; 93005; 93307; A4663; C1758; G0378; J0696; J1580; J1940; J2405; J3475; J3480; J7040; J7120